=== PATIENT | female | born 1980 | race Caucasian/White ===

== ENCOUNTER 2017-05-06 13:51 | Emergency (ER) | payer SELFPAY ==
[~2017-05-06] VITALS: Ht 165.1 cm; Wt 99.2 kg
[2017-05-06 14:27] LABS: HEMATOCRIT 41.7 % (36.0-46.0); HEMOGLOBIN 14.4 G/DL (11.9-15.5); MCH 29.5 PG (29.0-34.0); MCHC 34.5 G/DL (30.0-36.0); MCV 85.5 FL (83-99); PLATELET COUNT 271 K/uL (156-360); RBC DIS.WIDTH-CV 12.1 % (11.8-14.6); RBC DIS.WIDTH-SD 37.7 % (39-53); RED BLOOD COUNT 4.88 M/uL (3.80-5.20); WHITE BLOOD COUNT 4.9 K/uL (4.1-10.2)
[2017-05-06 14:36] LABS: CHLORIDE 111 mEq/L (99-109); SODIUM 140 mEq/L (136-147)
[2017-05-06 14:37] LABS: GLUCOSE 128 mg/dL (70-99)
[2017-05-06 14:41] LABS: CREATININE 0.7 mg/dL (0.6-1.3); UREA NITROGEN (BUN) 9 mg/dL (9-23)
[2017-05-06 14:42] LABS: GFR ESTIMATE (CALCULATED) > 59 mL/min/
[2017-05-06 14:55] LABS: QUANTITATIVE HCG < 4.0 MIU/ML
[2017-05-06] MEDS ORDERED: FIORICET 50-301 EAC1 PO (16:08)
[2017-05-06 16:47] VITALS: BP 129/99
== END 2017-05-06 17:14 | disposition home or self-care (01) ==
LOC: EME 13:51
DX: G43.909 Migraine, unspecified, not intractable, without status migrainosus (principal); F17.200 Nicotine dependence, unspecified, uncomplicated
CPT/HCPCS: 70450; 80048; 84702; 85027; 99281; 99284; J1200; J1885; J2765; J7030